=== PATIENT | male | born 1970 | race Caucasian/White ===

== ENCOUNTER 2022-11-12 13:22 | Outpatient (CLI) | payer BC, SELFPAY | END 2022-11-12 13:23 | disposition home or self-care (01) | LOC: AMB 11-15 14:51 | PROVIDERS: PCP Family Medicine; Visit Provider Family Medicine | DX: R41.82 Altered mental status, unspecified (principal) | CPT/HCPCS: A0425; A0427 ==

== ENCOUNTER 2022-11-12 13:53 | Emergency (ER) | payer BC, SELFPAY ==
[2022-11-12] VITALS (46 sets, daily range): BP systolic 97–201; BP diastolic 48–107; PULSE 76–138; RESP 13–21; O2SAT 97–100; BMI 32.1
--- NOTE | 2022-11-12 | CRLHL7_ITS ---
For Patients: As a result of the Cures Act, medical imaging exams and procedure reports are released immediately into your electronic medical record. You may view this report before your referring provider. If you have questions, please contact your health care provider. INDICATION: Post intubation. COMPARISON: 08/07/2010. TECHNIQUE: Portable supine chest, 1 view. FINDINGS: Endotracheal tube distal tip midtrachea. Lungs clear. No effusion. No pneumothorax. Defibrillator pad over the chest. IMPRESSION: Endotracheal tube distal tip midtrachea. Lungs clear. Dictated by Rebecca Mccarthy MD @ 11/12/2022 2:57:09 PM (Electronically Signed)
[2022-11-12] MEDS: PROPOFOL 10 MG/ML INJ 200 MG IVP (14:03)
[2022-11-12] MEDS: 0.9 % SODIUM CHLORIDE 1000 ml 1,000 ML IV (14:03)
[2022-11-12] MEDS: MIDAZOLAM HCL 1 MG/ML inj 4 MG IVP (14:05)
[2022-11-12] MEDS: fentaNYL 100 MCG/2 ML inj IVP ×2 (14:09→16:05)
--- NOTE | 2022-11-12 14:24 | CRLHL7_ITS ---
For Patients: As a result of the Century Cures Act, medical imaging exams and procedure reports are released immediately into your electronic medical record. You may view this report before your referring provider. If you have questions, please contact your health care provider. INDICATION: Seizure. TECHNIQUE: CT head without contrast. COMPARISON: None. FINDINGS: Left inferior occipital encephalomalacia/resection cavity. No adjacent edema or mass effect. The overlying craniotomy site appears normal. Otherwise, there is normal solano-white matter differentiation. No territorial infarct. No intracranial hemorrhage. No mass effect or midline shift. The ventricles and extra-axial spaces are normal. The orbits and globes are normal. The mastoids and middle ears are clear. The paranasal sinuses are normally aerated. Metallic dental hardware. IMPRESSION: Left occipital encephalomalacia/resection cavity. Otherwise, normal head CT. Please note that all CT scans at this facility use dose modulation, iterative reconstruction, and/or weight-based dosing when appropriate to reduce radiation dose to as low as reasonably achievable. Dictated by Rebecca Mccarthy MD @ 11/12/2022 2:56:13 PM (Electronically Signed)
--- NOTE | 2022-11-12 14:32 | PM.ANBPRC ---
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 Blade not long enough to get into vallecula. decision to immediately switch to glidescope with #3 blade. easily visualized and 8.0 ETT passed. secured by respiratory. positive waveform capnography. XRay confirmed tube placement. 200 mg propofol for sedation. No paralytic given. Fentanyl, Versed, and propofol infusion per code blue charting Final Airway Type: endotracheal airway Number of Attempts at Approach: 2 Ventilation Between Attempts: BVM Dentition Unchanged: No
[2022-11-12] MEDS: propofoL 1,000 MG/100 ML ML 29.7 MG IVPB ×2 (14:43→16:00)
[2022-11-12] MEDS: 0.9 % SODIUM CHLORIDE 1000 ml 1,000 ML 500 ML IV (14:43)
[2022-11-12 14:44] LABS: PCO2 VBG 58 mmHG (40-50); PO2 VBG 85.6 mmHG (25-47)
[2022-11-12 14:45] LABS: Albumin* 5.6 g/dL (3.3-5.0); Chloride* 106 mmol/L (96-114); Sodium* 149 mmol/L (135-149)
[2022-11-12] MEDS: fentaNYL 100 MCG/2 ML inj 25 MCG IVP (14:45)
[2022-11-12 14:46] LABS: Basophils Percent Auto 0.3 % (0.0-3.0); Hematocrit 50.8 % (37.0-53.0); Hemoglobin* 16.1 gm/dL (13.5-17.5); Immature Granulocytes Pct Auto 1.7 %; Lymphocytes Percent Auto 44.8 % (20-44); Mean Corpuscular HGB Conc 32 gm/dL (32-36); Mean Corpuscular Hemoglobin 30 pg (26-34); Mean Corpuscular Volume 94 fL (80-100); Monocytes Percent Auto 10.3 % (0.0-11.0); Neutrophils Percent Auto 41.9 % (42.0-72.0); Platelet Count* 268 K/uL (140-440); Potassium* 4.1 mmol/L (3.6-5.1); RDW Coefficient of Variation % 12.4 % (11.5-15.5); Red Blood Count 5.41 m/uL (4.30-5.90); White Blood Count* 13.47 K/uL (4.50-11.00)
[2022-11-12 14:48] LABS: Acetaminophen* < 10.0 ug/mL (10.0-30.0); Bilirubin Total* 0.6 mg/dL (0.1-1.5); Creatinine* 1.5 mg/dL (0.5-1.5); Estimated Glomerular Filt Rate 56 ml/min; Ethanol* < 0.01 % (0.01-0.03); Salicylate* < 1.0 mg/dL (1.0-10)
[2022-11-12 14:49] LABS: Alanine Aminotransferase* 54 U/L (4-50); Alkaline Phosphatase* 67 U/L (40-150); Anion Gap 35 mEq/L (7-15); Aspartate Amino Transferase* 48 U/L (12-35); Blood Urea Nitrogen* 15 mg/dL (7-30); Calcium* 10.8 mg/dL (8.4-10.6); Glucose* 185 mg/dL (60-115); Slide Review Reflex No; Total Protein* 8.8 g/dL (6.0-8.3)
[2022-11-12 14:52] LABS: HCO3 VBG 8 mmol/L (21-28)
[2022-11-12 14:53] LABS: Lactate* > 24.0 mmol/L (0.5-1.9); pH VBG < 6.818 (7.32-7.43)
[2022-11-12 14:54] LABS: C Reactive Protein* < 0.5 mg/dL (0.5-1.0); Carbon Dioxide* 8 mmol/L (20-32)
--- NOTE | 2022-11-12 15:00 | CRLHL7_ITS ---
For Patients: As a result of the Century Cures Act, medical imaging exams and procedure reports are released immediately into your electronic medical record. You may view this report before your referring provider. If you have questions, please contact your health care provider. INDICATION: Post NG tube placement - multiple attempts. TECHNIQUE: AP chest 5 views. COMPARISON: Chest radiograph 11/12/2022 at 2:09 p.m. FINDINGS: Endotracheal tube with tip 4.7 cm above the clari. Low lung volumes. No focal consolidation, pleural effusion, or pneumothorax. Stable cardiomediastinal silhouette. Defibrillator pads over the chest. On the final image, there is an enteric tube with tip and side hole projected over the stomach. Degenerative changes of the spine. IMPRESSION: 1. Enteric tube with tip and side hole projected over the stomach on the final image. 2. Endotracheal tube in satisfactory position. 3. No acute cardiopulmonary findings. Dictated by Keara Kelly MD @ 11/12/2022 5:27:48 PM (Electronically Signed)
--- NOTE | 2022-11-12 15:01 | ED_ITS ---
HPI - Seizure General Time Seen by Provider: 15:04 Date Seen: 11/12/22 Chief Complaint: Seizure Stated Complaint: Possible CVA Source: patient, family ( spoken to later.), EMS and RN notes reviewed Mode of arrival: EMS Limitations: altered mental status History of Present Illness HPI Narrative: Patient was brought in by EMS on a [facility] for confusion/altered mental status. Patient reportedly had been out hunting birds, complained of some pain in an arm or ear after he shot once, went back to a shed or garage. Neighbors worked to get him out to his car which was a bit down the driveway. He reportedly was not feeling good and than reportedly went unconscious. Fire and rescue on scene reported to me that he was unconscious. It does not sound like seizure activity was noted. This is a patient that reportedly did drink heavy on Thursday, was trying to get him in the car and when she turned around after having him lean up on the cart he was on the ground. She does not think he hit his head hard. Has been normal in between. He has a history of brain resection for cancer and then a follow-up surgery. does not know significant details. On arrival here, patient had rapid beating horizontal nystagmus. He would attempt to talk and answer questions but could not make speech. He was not following commands such as squeezing hands. I told him he was at the hospital and he did state yes in shake his head the and acknowledgement. This is basically healthy interaction went for few minutes. We took him into the CT scan and within minutes of being in there, head started to posture to the right and he tensed up. Eventually both of his arms were raised and straightened. We quickly moved him back into stabilization room, got 1 mg IV Ativan in him as EMS had in IV in left arm. By the time the Ativan was in, patient had been seizing, was not breathing, face was turning blue. We were working quickly to get oxygen back on him, ventilate. After the IV Ativan was in, he did start having sonorous breathing, could see some frothy at the corners of his mouth that developed with the seizure. Coloration started to improve. T he posturing with his arms straight up in the increased tonicity resolved. His blood pressure was elevated in the 200 over 110 range after the seizure. He was moved from the ambulance cart to the ED bed at this point. Nursing staff work to find a 2nd IV site, cardiac monitoring, airway support, pulse oximetry all applied. Anesthesia was present with respiratory therapy, did assist ventilation and oxygenation. Patient was significantly obtunded, independently breathing at this time but not making any purposeful communication, was felt that he was not protective of his airway at this point decision was made to intubate. Pharmacy was present and did get 1500 mg IV Keppra to load. Anesthesia and respiratory therapy work to secure the airway. 200 mg IV propofol was given, initial L of normal saline was hung with that as well. Anesthesia intubated the patient, bilateral breath sounds were noted, post intubation film obtained an ET tube visualized few cm above the trachea on my review. Nursing staff was working to get capnography on the monitor at this point. Patient was mildly tachycardic but no murmur was heard. No facial trauma noted, no neck crepitus or masses noted. Abdomen is soft. No visible traumatic changes on his extremities at this point noted. Post intubation, propofol drip was initiated, he was given 100 mcg IV fentanyl and 4 mg IV Versed. Propofol was titrated to sedation, did receive another 25 mcg fentanyl later. Will have staff secure a nasogastric or orogastric tube, Francisco catheter. Did eventually talk to [facility] where patient had all of his cares at 2:08 p.m., spoke with Yesi LEE. They are currently on ICU diversion but given this patient has had is cares there, will try to facilitate transfer. At 2:[address] Buchanan the critical care pesticide use medical coordinator. She wanted me to have the patient's head CT read stat, pushed through to them which we were doing. Once I had the head CT report, she was going to have me talk to Neurology. Did contact [facility] to have the head CT moved to the front of the queue and read stat. With the negative reading minus his prior surgery, did speak with Dr. Valentin the neurocritical care physician. She requested that I give patient a total 4 g IV load for another 2500 mg IV Keppra needed. Patient is stable E intubated, on the propofol drip. Nursing staff did have some difficulty placing the NG, initial tries showed curling up in the hypopharynx, 2nd 1 was showing curling in the esophagus. On the 3rd try a could see the tube down into the stomach. complaint: seizure Review of Systems Status of ROS: Reports: unobtainable due to medical condition PFSH PFSH Social History Smoking Status: Never smoker Do you use any of these nicotine containing products: None Second hand tobacco smoke exposure: No How often do you have a drink containing alcohol: never How often do you have six or more drinks on one occasion: Never AUDIT-C Alcohol total score: 0 Non-prescribed substance use: denies use service: No Exam Const: Vital Signs, click to edit/add: Vital Signs - 24 hr 11/12/22 14:14 11/12/22 14:15 11/12/22 14:33 Pulse Rate 114 H 115 H 106 H Respiratory Rate 15 17 Blood Pressure 154/83 H Pulse Oximetry 98 99 100 Oxygen Delivery Me thod 11/12/22 14:34 11/12/22 14:35 11/12/22 14:36 Pulse Rate 108 H 109 H 106 H Respiratory Rate Blood Pressure 99/48 L 104/61 97/56 L Pulse Oximetry 100 100 100 Oxygen Delivery Me thod 11/12/22 14:37 11/12/22 14:40 11/12/22 14:41 Pulse Rate 106 H 105 H 119 H Respiratory Rate 21 21 Blood Pressure 115/73 Pulse Oximetry 100 100 100 Oxygen Delivery Me thod 11/12/22 14:45 11/12/22 14:46 11/12/22 14:50 Pulse Rate 106 H 104 H 102 H Respiratory Rate 15 15 15 Blood Pressure 110/62 Pulse Oximetry 100 100 100 Oxygen Delivery Me thod 11/12/22 14:51 11/12/22 14:55 11/12/22 14:56 Pulse Rate 101 H 101 H 101 H Respiratory Rate 17 17 17 Blood Pressure 108/62 105/58 L Pulse Oximetry 100 100 100 Oxygen Delivery Me thod 11/12/22 15:00 11/12/22 15:01 11/12/22 15:05 Pulse Rate 101 H 101 H 99 Respiratory Rate 17 16 16 Blood Pressure 107/66 Pulse Oximetry 100 100 100 Oxygen Delivery Me thod 11/12/22 15:06 11/12/22 15:10 11/12/22 15:11 Pulse Rate 101 H 100 96 Respiratory Rate 15 13 15 Blood Pressure 109/65 114/74 Pulse Oximetry 100 100 100 Oxygen Delivery Me thod 11/12/22 15:15 11/12/22 15:16 11/12/22 15:20 Pulse Rate 94 98 91 Respiratory Rate 16 13 14 Blood Pressure 109/77 Pulse Oximetry 100 100 98 Oxygen Delivery Me thod 11/12/22 15:21 11/12/22 15:25 11/12/22 15:26 Pulse Rate 101 H 89 88 Respiratory Rate 14 15 15 Blood Pressure 112/85 111/76 Pulse Oximetry 98 100 100 Oxygen Delivery Me thod 11/12/22 15:30 11/12/22 15:31 11/12/22 15:35 Pulse Rate 88 88 87 Respiratory Rate 16 15 16 Blood Pressure 109/73 Pulse Oximetry 100 100 100 Oxygen Delivery Me thod 11/12/22 15:36 11/12/22 15:40 11/12/22 15:41 Pulse Rate 86 88 85 Respiratory Rate 15 15 14 Blood Pressure 111/79 107/82 Pulse Oximetry 100 100 100 Oxygen Delivery Me thod 11/12/22 15:45 11/12/22 15:46 11/12/22 15:50 Pulse Rate 83 83 81 Respiratory Rate 15 14 15 Blood Pressure 115/82 Pulse Oximetry 100 100 100 Oxygen Delivery Me thod 11/12/22 15:51 11/12/22 15:55 11/12/22 15:56 Pulse Rate 81 78 79 Respiratory Rate 16 15 16 Blood Pressure 124/84 134/76 Pulse Oximetry 100 100 100 Oxygen Delivery Me thod 11/12/22 16:00 11/12/22 16:01 11/12/22 16:05 Pulse Rate 79 78 76 Respiratory Rate 16 15 15 Blood Pressure 132/87 Pulse Oximetry 100 100 100 Oxygen Delivery Me thod 11/12/22 16:06 11/12/22 16:10 11/12/22 16:15 Pulse Rate 76 Respiratory Rate 15 13 Blood Pressure 140/90 H Pulse Oximetry 100 100 Oxygen Delivery Me thod 11/12/22 16:15 Pulse Rate Respiratory Rate Blood Pressure Pulse Oximetry 100 Oxygen Delivery Me thod Intubated Exam is documented through the course of the critical care of events up in the HPI. Documenting provider has reviewed patient's vital signs: yes Course Course ED Course: Please see HPI. Vital Signs Vital signs: Initial Vital Signs Pulse Rate 114 H 11/12/22 14:14 Respiratory Rate 15 11/12/22 14:14 Blood Pressure 154/83 H 11/12/22 14:14 Blood Pressure Mean 106 H 11/12/22 14:14 Pulse Oximetry 98 11/12/22 14:14 Vital Signs Pulse Rate 114 H 11/12/22 14:14 Respiratory Rate 15 11/12/22 14:14 Blood Pressure 154/83 H 11/12/22 14:14 Pulse Oximetry 98 11/12/22 14:14 Pulse Rate 76 11/12/22 16:06 Respiratory Rate 13 11/12/22 16:10 Blood Pressure 140/90 H 11/12/22 16:06 Pulse Oximetry 100 11/12/22 16:15 Oxygen Delivery Method Intubated 11/12/22 16:15 MDM - Seizure Lab Data Attestation: I reviewed the patient's lab results. Labs: Lab Results 11/12/22 11/12/22 Range/Units 14:00 15:20 WBC 13.47 H (4.50-11.00) K/uL RBC 5.41 (4.30-5.90) m/uL Hgb 16.1 (13.5-17.5) gm/dL Hct 50.8 (37.0-53.0) % MCV 94 (80-100) fL MCH 30 (26-34) pg MCHC 32 (32-36) gm/dL RDW Coeff of Angel 12.4 (11.5-15.5) % Plt Count 268 (140-440) K/uL Neut % (Auto) 41.9 L (42.0-72.0) % Lymph % (Auto) 44.8 H (20-44) % Dyer % (Auto) 10.3 (0.0-11.0) % Eos % (Auto) 1.0 (0.0-7.0) % Baso % (Auto) 0.3 (0.0-3.0) % Neut # (Auto) 5.60 (1.7-7.0) K/uL Lymph # (Auto) 6.00 H (0.90-2.90) K/uL Dyer # (Auto) 1.40 H (0.00-0.90) K/UL Eos # (Auto) 0.10 (0.00-0.50) K/uL Baso # (Auto) 0.00 (0.00-0.30) K/uL Abs Immat Gran (auto) 0.20 (0.00-0.30) K/uL Imm/Tot Granulo (auto) 1.7 % VBG pH < 6.818 L* (7.32-7.43) VBG pCO2 58 H (40-50) mmHG VBG pO2 85.6 H (25-47) mmHG VBG HCO3 8 L (21-28) mmol/L Sodium 149 (135-149) mmol/L Potassium 4.1 (3.6-5.1) mmol/L Chloride 106 (96-114) mmol/L Carbon Dioxide 8 L* (20-32) mmol/L Anion Gap 35 H (7-15) mEq/L BUN 15 (7-30) mg/dL Creatinine 1.5 (0.5-1.5) mg/dL Estimated GFR 56 ml/min Glucose 185 H (60-115) mg/dL Lactate > 24.0 H* (0.5-1.9) mmol/L Calcium 10.8 H (8.4-10.6) mg/dL Total Bilirubin 0.6 (0.1-1.5) mg/dL AST 48 H (12-35) U/L ALT 54 H (4-50) U/L Alkaline Phosphatase 67 (40-150) U/L C-Reactive Protein < 0.5 L (0.5-1.0) mg/dL Total Protein 8.8 H (6.0-8.3) g/dL Albumin 5.6 H (3.3-5.0) g/dL Urine Color Yellow (Yellow) Urine Appearance Clear (Clear) Urine pH 5.5 (5.0-8.5) Ur Specific [place] 1.025 (1.000-1.030) Urine Protein 2+ A (Negative) Urine Glucose (UA) Negative (Negative) Urine Ketones Negative (Negative) Urine Blood Trace-intact A (Negative) Urine Nitrite Negative (Negative) Urine Bilirubin Negative (Negative) Urine Urobilinogen 0.2 (0.2-1.0) Ur Leukocyte Esterase Negative (Negative) Urine RBC 0-2 (0-2) Urine WBC 0-2 (0-5) Ur Squamous Epith Cells None (None-Few) Urine Bacteria Few A (None) Fine Granular Casts Few A (None) Salicylates < 1.0 L (1.0-10) mg/dL Urine Opiates Screen Negative (Negative) Ur Oxycodone Screen Negative (Negative) Urine Methadone Screen Negative (Negative) Ur Propoxyphene Screen Negative (Negative) Acetaminophen < 10.0 L (10.0-30.0) ug/mL Ur Barbiturates Screen Negative (Negative) U Tricyclic Antidepress Negative (Negative) Ur Phencyclidine Scrn Negative (Negative) Ur Amphetamines Screen Negative (Negative) U Methamphetamines Scrn Negative (Negative) U Benzodiazepines Scrn Negative (Negative) Urine Cocaine Screen Negative (Negative) U Marijuana (THC) Screen POSITIVE A (Negative) Ur Drug Screen Comment See Note Ethyl Alcohol < 0.01 L (0.01-0.03) % Imaging Data CT scan - head: Attestation: I have reviewed the pertinent imaging results. Radiologist's impression: Patient: GENARO RAVENEL Facility:?[facility] Patient ID:?[id number] Site Patient ID:?[id number]. Site :?[id number] Study:?CT Head w/o Contrast-11/12/2022 2:36:15 PM Ordering Physician:?Earnestine Cid Final Report: INDICATION: Seizure. TECHNIQUE: CT head without contrast. COMPARISON: None. FINDINGS: Left inferior occipital encephalomalacia/resection cavity. No adjacent edema or mass effect. The overlying craniotomy site appears normal. Otherwise, there is normal solano-white matter differentiation. No territorial infarct. No intracranial hemorrhage. No mass effect or midline shift. The ventricles and extra-axial spaces are normal. The orbits and globes are normal. The mastoids and middle ears are clear. The paranasal sinuses are normally aerated. Metallic dental hardware. IMPRESSION: Left occipital encephalomalacia/resection cavity. Otherwise, normal head CT. Please note that all CT scans at this facility use dose modulation, iterative reconstruction, and/or weight-based dosing when appropriate to reduce radiation dose to as low as reasonably achievable. Dictated by Rebecca Mccarthy MD @ 11/12/2022 2:56:13 PM (Electronic Signature) Chest x-ray: Attestation: I have reviewed the pertinent imaging results. Radiologist's impression: Patient: GENARO LEDESMA Facility:[facility] Patient ID:?[id number] Site Patient ID:?[id number]. Site :?[id number] Study:?XRay Chest PORTABLE ONE VIEW-11/12/2022 2:22:21 PM Ordering Physician:Siobhan Cid Final Report: INDICATION: Post intubation. COMPARISON: 08/07/2010. TECHNIQUE: Portable supine chest, 1 view. FINDINGS: Endotracheal tube distal tip midtrachea. Lungs clear. No effusion. No pneumothorax. Defibrillator pad over the chest. IMPRESSION: Endotracheal tube distal tip midtrachea. Lungs clear. Dictated by Rebecca Mccarthy MD @ 11/12/2022 2:57:09 PM (Electronic Signature) ECG Data Attestation: I personally reviewed and interpreted this ECG as follows: (Sinus tachycardia, 106 beats per minute. No definitive ischemic change on this EKG. QT corrected 470 milliseconds.) ECG interpretation date: 11/12/22 ECG interpretation time: 15:26 Critical Care Time Critical Care Time Critical Care Time: Yes Attestation: The patient required my highest level preparedness to intervene emergently and I personally spent this critical care time directly and personally managing the patient. This critical care time included: Obtaining a history; Examining the patient; Pulse oximetry; Ordering and reviewing of studies; Arranging urgent treatment with development of a management plan; Evaluation of patients response to treatment; Frequent reassessment discussions with other providers. This critical care time was performed to assess and manage the high probability of imminent life-threatening deterioration that could result in multiorgan failure. It was exclusive of separate billable procedures and treating other patients and teaching time. Total Critical Care Time in Minutes: 124 Discharge Plan Discharge Clinical Impression: Generalized seizure, Airway intubation performed without difficulty Patient Disposition: [facility] Discharge Location: [facility] Condition: Critical Stand [facility]one [facility]
--- NOTE | 2022-11-12 15:01 | RESP.RT ---
Code Blue called, patient intubated 24 cm at the teeth on right. Bilateral breath sounds and ETCo2 of 34. Tube placement confirmed. Patient place on R12, VT 620 peep 5, 100% with o2 wean to 50%. Paitent transported to and from [place] without incident. RR 17, VTE 627, Ve 120.2, PIP 13. RN at bedside. Will continue to follow until transfer.
--- NOTE | 2022-11-12 15:35 | ED.NURSE ---
Addendum entered by Erika Baez RN 11/12/22 15:46: 1404 - Keppra infused @ 300mL/hour Original Note: Medications given as follows: 1356 - 1 mg Ativan IV 1403 - 10 mL Propofol IV 1404 - 10 mL Propofol IV repeated 1405 - 4 mg Versed IV 1409 - 100 mcg Fentanyl IV 1412 - Propofol drip started @ 50mcg 1443 - Propofol drip increased to 75mcg 1445 - 25 mcg Fentanyl IV
[2022-11-12 15:36] LABS: Appearance Urine Clear (Clear); Bilirubin Urine Negative (Negative); Blood Urine Trace-intact (Negative); Color Urine Yellow (Yellow); Glucose Urine Negative (Negative); Ketones Urine Negative (Negative); Leukocyte Esterase Urine Negative (Negative); Nitrite Urine Negative (Negative); Protein Urine 2+ (Negative); Specific Gravity Urine 1.025 (1.000-1.030); Urobilinogen Urine 0.2 (0.2-1.0); pH Urine 5.5 (5.0-8.5)
[2022-11-12 15:47] LABS: Amphetamine Screen Urine Negative (Negative); Barbiturate Screen Urine Negative (Negative); Benzodiazepines Screen Urine Negative (Negative); Cannabinoid Screen Urine POSITIVE (Negative); Cocaine Screen Urine Negative (Negative); Methadone Screen Urine Negative (Negative); Methamphetamines Screen Urine Negative (Negative); Opiate Screen Urine Negative (Negative); Oxycodone Screen Urine Negative (Negative); Phencyclidine Screen Urine Negative (Negative); Tricyclic Antidepressant Urine Negative (Negative)
--- NOTE | 2022-11-12 15:49 | ED.NURSE ---
1403 - First 1L NS started, wide open 1443 - Second 1L NS started @ 500 mL/hour
[2022-11-12 15:54] LABS: Bacteria Urine Few; RBC Urine 0-2 (0-2); WBC Urine 0-2 (0-5)
[2022-11-12 15:55] LABS: Fine Granular Casts Urine Few
--- NOTE | 2022-11-12 16:54 | ED.NURSE ---
Pt arrived via EMS around 1345. Dr. Samano assessed pt in the hallway and determined CT was necessary. Upon arrival to CT room, pt began to seize with head turning to the right, arms held out straight in front of him, and he lost consciousness. Pt was immediately brought to [facility] for treatment. Size 8 ETT tube placed at 1405 by anesthesia. Tube 24 @ the teeth. Second IV line placed in the room. OG suction tube placed, measuring 65 @ the teeth. Both tubes placement confirmed by X-ray.
--- NOTE | 2022-11-12 17:01 | ED.NURSE ---
1356 - 1 mg Ativan given IV by EMS from their supply 1357 - Patient moved to ED cot from EMS cot, clothing removed 1359 - 18G IV placed in the RIGHT ac 1403 - Propofol given in preparation for RSI. First bag of NS started, open wide. 1404 - Keppra started @ 300 mL/hour 1405 - ET tube placed, size 8, measures 24 @ teeth; 4 of Versed given 1407 - Xray present and confirmed tube placement 1409 - 100mcg IV fentanyl given 1412 - Propofol drip started at 50mcg/kg/min, vent started by RT 1418 - To CT for brain scan, LEFT AC IV replaced while in CT, 18G inserted 1440 - Return from CT; 16Fr Francisco catheter placed draining clear yellow urine 1443 - Propofol drip increased to 75mcg/kg/min 1445 - 25mcg IV fentanyl given 1448 - Attempted NG tube insertion, failed, xray confirmed failure 1513 - Second attempt NG tube placement, xray confirmed failed placement again 1550 - OG placed, xray confirmed proper placement. Tube to low, intermittent suction. Secured @ 65 at the teeth 1602 - New bottle of 1000 mg Propofol hung 1606 - 50mcg IV Fentanyl given 1617 - Pt transferred to EMS cot for ground transfer to [facility] ICU 1623 - EMS left with patient 1632 - Report called to JESUS Hoffman @ [facility]. All questions answered.
== END 2022-11-12 16:23 | disposition short-term general hospital (02) ==
PROVIDERS: Emergency Provider Family Medicine; PCP Family Medicine
DX: G40.89 Other seizures (principal)
CPT/HCPCS: 36415; 70450; 71045; 80053; 80143; 80179; 80306; 81001; 82077; 82803; 83605; 85025; 86140; 87086; 93005; 94761; 96365; 96366; 96375; 99285; 99291; 99292; J1953; J2250; J2704; J3010; J7030; J7050

== ENCOUNTER 2022-11-12 16:24 | Outpatient (CLI) | payer BC, SELFPAY | END 2022-11-12 16:25 | disposition home or self-care (01) | LOC: AMB 11-15 14:56 | PROVIDERS: PCP Family Medicine; Visit Provider Family Medicine | DX: R56.9 Unspecified convulsions (principal); Z78.9 Other specified health status | CPT/HCPCS: A0425; A0434 ==